=== PATIENT | female | born 2000 | race Caucasian/White ===

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

== ENCOUNTER 2020-02-04 11:39 | Outpatient (CLI) | payer MEDICAID ==
[~2020-02-04] VITALS: Ht 162.6 cm; Wt 83.6 kg
[~2020-02-04 11:39] MED LIST changes: +FLAGYL500 MG PO; +ZITHROMAX 250M250 MG PO
--- NOTE | 2020-02-04 11:45 | NUR ---
1145-G3L1 29.[address] Diaz' to LR 5 with complaint of vaginal bleeding this am at 0900. Describes bleeding as a dime size bright red amount on toilet paper with voiding. It was followed by brown discharge similar in size and then again more bright red small amount of bleeding an hour or so later with voiding. Reports good movement. Denies contractions but does state "I have had more and more constant tightening over the last week." Patient was on pelvic rest from complete previa noted at 28weeks. Denies any VSS see flow record. 1209-Dr. Hurst updated, see physician notification 1220-Difficulty tracing FHR due to audbile movement. EFM adjusted. 1240-Paitent off EFM. Upon removal of EFM patient voiced concern with vaginal itching and pain she is having on exernal labia. No redness noted on labia. Updated MD. Orders obtained to dishcarge home and instruct to brain picker monistat for use on area and follow up with Dr. Diaz Thursday if not improving.
[2020-02-04 11:54] VITALS: BP 112/57; PULSE 117; TEMP 98.8
[2020-02-04] MEDS ORDERED: PRENATAL (12:02)
[2020-02-04 12:15] VITALS: BP 112/57; PULSE 117; TEMP 98.8
--- NOTE | 2020-02-04 13:03 | NUR ---
1303-ambulatory off unit
== END 2020-02-04 13:03 | disposition home or self-care (01) ==
LOC: LDRO 11:39
DX: O46.8X3 Other antepartum hemorrhage, third trimester (principal); Z3A.29 29 weeks gestation of pregnancy

== ENCOUNTER 2020-02-27 15:20 | Outpatient (CLI) | payer MEDICAID ==
[~2020-02-27] VITALS: Ht 162.6 cm; Wt 75.0 kg
[~2020-02-27 15:20] MED LIST changes: +PRENATAL
[2020-02-27 15:23] VITALS: PULSE 76; TEMP 98.1
[2020-02-27 15:37] VITALS: BP 98/65; PULSE 99
--- NOTE | 2020-02-27 15:42 | NUR ---
1440 PATIENT HERE FOR COMPLAINTS OF CRAMPS AT HOME. EFM ON FHT 125 BABY VERY ACTIVE. NO CONTRACTIONS ON MONITOR AT THIS TIME. NO SVE DUE TO COMPLETE PREVIA. DR GODDARD UPDATED AND STRIP REVIEWED AT THIS TIME. ASSESSMENT COMPLETED VS WNL,
== END 2020-02-27 15:44 | disposition home or self-care (01) ==
LOC: LDRO 15:20 → LDR 15:29 → LDRO 15:44
DX: O62.9 Abnormality of forces of labor, unspecified (principal); Z3A.32 32 weeks gestation of pregnancy
CPT/HCPCS: OP

== ENCOUNTER → 2020-03-27 | Outpatient (CLI) | payer MEDICAID ==
[~2020-03-27] MED LIST changes: +PERCOCET 325 MG1 TA2 PO
== END ==
LOC: COL.LAB
DX: Z20.828 Contact with and (suspected) exposure to other viral communicable diseases (principal)

== ENCOUNTER 2020-03-29 05:23 | Inpatient (IN) | payer MEDICAID ==
[2020-03-29] VITALS (21 sets, daily range): BP systolic 90–127; BP diastolic 58–86; PULSE 70–94; TEMP 98–98.8
[~2020-03-29] VITALS: Ht 162.6 cm; Wt 90.5 kg
[~2020-03-29 05:23] MED LIST changes: -PERCOCET 325 MG1 TA2 PO
--- NOTE | 2020-03-29 05:25 | NUR ---
Pt ambulatory to 209 for scheduled with significant other. Clean gown on. EFM and TOCO explained and applied. Pt states she has irregular contractions. Denies leaking of fluids or vaginal bleeding. Reports good movement. Plan of care and consents completed. 0540: IV started and labs obtained vis IV site. LR bolus infusing without difficulties.
[2020-03-29 06:14] LABS: BASO % 0.2 % (0.0-2.0); EOS % 0.5 % (0-4.0); GRAN # 5.5 (1.4-6.5); GRAN % 62.3 % (42.2-75.2); LYMPH # 2.6 (1.2-3.4); LYMPH % 29.7 % (20.0-51.0); MEAN CELL VOLUME 70 fl (80.0-95.0); MEAN CORPUSCULAR HGB CONC 29 g/dl (33.0-37.0); MEAN PLATELET VOLUME 11.2 fl (7.4-10.4); MONO # 0.6 (0.1-0.6); MONO % 6.2 % (1.7-9.3); PLATELET COUNT 187 K/mm3 (130-400); RED BLOOD COUNT 3.41 M/mm3 (4.10-5.30); REDCELL DISTRIBUTION WIDTH-CV 19.9 % (11.5-14.5)
[2020-03-29 06:18] LABS: HEMATOCRIT 23.9 % (35.0-45.0); MEAN CORPUSCULAR HEMOGLOBIN 21 pg (26.0-32.0)
--- NOTE | 2020-03-29 08:35 | NUR ---
LARGE CLOT EXPRESSED IN OR. DR GODDARD NOTIFIED AND CAME INTO OR. METHERGINE IM ORDERED AND GIVEN. AT 0840- LARGE CLOT EXPRESSED. DR GODDARD NOTIFIED AND CAME IN TO REEVALUATE. DR GODDARD MASSAGED FUNDUS FOR 5 MINUTES- TIMED ON THE CLOCK
--- NOTE | 2020-03-29 08:40 | NUR ---
WEIGHED PADS FOR PATIENTS CLOT- [id number] BLEEDING.
--- NOTE | 2020-03-29 12:45 | NUR ---
PATIENT PUMPED 10 MLS MILK. MILK SENT WITH . [facility]ED TO [facility] TO BE WITH THE BABY
--- NOTE | 2020-03-29 17:29 | NUR ---
PATIENT PUMPED 10 MLS BREAST MILK. PLACED IN REFRIGERATOR
--- NOTE | 2020-03-29 23:34 | NUR ---
Assumed care at this time.
[2020-03-30 00:30] VITALS: BP 103/65; PULSE 88; TEMP 98.7
[2020-03-30 03:00] VITALS: BP 101/56; PULSE 83; TEMP 97.9
[2020-03-30 07:00] VITALS: BP 102/56; PULSE 84; TEMP 98.8
[2020-03-30 07:00] LABS: BASO % 0.2 % (0.0-2.0); EOS % 0.1 % (0-4.0); GRAN # 8.7 (1.4-6.5); GRAN % 70.2 % (42.2-75.2); LYMPH # 2.7 (1.2-3.4); LYMPH % 21.7 % (20.0-51.0); MEAN CELL VOLUME 71 fl (80.0-95.0); MEAN CORPUSCULAR HGB CONC 29 g/dl (33.0-37.0); MEAN PLATELET VOLUME 11.2 fl (7.4-10.4); MONO # 0.8 (0.1-0.6); MONO % 6.7 % (1.7-9.3); PLATELET COUNT 156 K/mm3 (130-400); RED BLOOD COUNT 2.99 M/mm3 (4.10-5.30); REDCELL DISTRIBUTION WIDTH-CV 19.9 % (11.5-14.5)
[2020-03-30 07:08] LABS: HEMATOCRIT 21.3 % (35.0-45.0); HEMOGLOBIN 6.2 g/dl (12.0-15.0); MEAN CORPUSCULAR HEMOGLOBIN 21 pg (26.0-32.0)
[2020-03-30] MEDS ORDERED: IBU600 MG PO (08:36)
[2020-03-30] MEDS ORDERED: PERCOCET 325 MG1 TA2 PO (08:36)
[2020-03-30 11:00] VITALS: BP 104/62; PULSE 97; TEMP 97.8
--- NOTE | 2020-03-30 11:00 | NUR ---
1100-Reviewed discharge instructions with patient. Reviewed 2 and 6 week scheduled visits. Provided newly prescribed rx. Denies questions. verbalizes understanding. 1255-Ambulatory off unit with spouse.
== END 2020-03-30 12:55 | disposition home or self-care (01) | DRG 788 ==
LOC: COL.LAB → OB 05:23 → EDSTATUS 10:47 → LDR 10:48 → COL.LAB 11:12 → OB 03-30 12:55
PROVIDERS: ADMIT Obstetrics & Gynecology
PROC: 10D00Z1 Extraction of Products of Conception, Low, Open Approach (ICD-10-PCS; principal; 2020-03-29)
DX: O44.13 Complete placenta previa with hemorrhage, third trimester (principal); O99.02 Anemia complicating childbirth; D64.9 Anemia, unspecified; Z37.0 Single live birth; Z3A.37 37 weeks gestation of pregnancy
CPT/HCPCS: J0690; J1885; J2210; J2370; J2405; J2590; J7120

== ENCOUNTER 2020-08-24 11:42 | Emergency (ER) | payer MEDICAID ==
[~2020-08-24] VITALS: Ht 165.1 cm; Wt 79.1 kg
[~2020-08-24 11:42] MED LIST changes: +PERCOCET 325 MG1 TA2 PO
[2020-08-24 11:57] VITALS: BP 116/76; TEMP 98.2
[2020-08-24 12:51] VITALS: PULSE 85
== END 2020-08-24 12:51 | disposition home or self-care (01) ==
LOC: COL.ER 11:42
DX: Z20.828 Contact with and (suspected) exposure to other viral communicable diseases (principal); Z79.1 Long term (current) use of non-steroidal anti-inflammatories (NSAID); Z79.891 Long term (current) use of opiate analgesic

== ENCOUNTER 2020-10-22 15:15 | Emergency (ER) | payer MEDICAID ==
[~2020-10-22] VITALS: Ht 165.1 cm; Wt 72.7 kg
[2020-10-22 15:30] VITALS: BP 114/73; TEMP 98.7
[2020-10-22 17:30] VITALS: PULSE 88
== END 2020-10-22 17:30 | disposition home or self-care (01) ==
LOC: COL.ER 15:15
DX: J06.9 Acute upper respiratory infection, unspecified (principal); Z20.822 Contact with and (suspected) exposure to COVID-19

== ENCOUNTER 2021-10-10 00:38 | Emergency (ER) | payer MEDICAID ==
[~2021-10-10] VITALS: Ht 165.1 cm; Wt 72.7 kg
[2021-10-10 00:43] VITALS: TEMP 98
[2021-10-10 01:19] LABS: BASO % 0.4 % (0.0-2.0); EOS # 0.1 K/mm3 (0.0-0.7); EOS % 1.3 % (0.0-4.0); GRAN # 4.1 K/mm3 (1.4-6.5); GRAN % 48.5 % (42.2-75.2); HEMATOCRIT 37.2 % (37.0-47.0); LYMPH # 3.8 K/mm3 (1.2-3.4); LYMPH % 44.2 % (20.0-51.0); MEAN CELL VOLUME 81 fl (80.0-100.0); MEAN CORPUSCULAR HEMOGLOBIN 26 pg (27-31); MEAN CORPUSCULAR HGB CONC 32 g/dl (33.0-37.0); MEAN PLATELET VOLUME 10.2 fl (7.4-10.4); MONO # 0.4 K/mm3 (0.1-0.6); MONO % 5.2 % (1.7-9.3); PLATELET COUNT 291 K/mm3 (130-400); RED BLOOD COUNT 4.61 M/mm3 (4.10-5.30); REDCELL DISTRIBUTION WIDTH-CV 14.6 % (11.5-14.5)
[2021-10-10 01:23] LABS: COLLECTION METHOD CLEAN CATCH
[2021-10-10 01:31] LABS: MUCOUS Present (NOT PRESENT); PH 5 (5-8); SQUAMOUS EPITHELIAL 0-2 /hpf (0-10); URINE APPEARANCE Clear (CLEAR/HAZY); URINE BACTERIA None Seen /hpf (NONE SEEN); URINE BILIRUBIN Negative (NEGATIVE); URINE BLOOD 1+ (NEGATIVE); URINE COLOR Yellow (YELLOW); URINE GLUCOSE Negative (NEGATIVE); URINE KETONE Negative (NEGATIVE); URINE LEUKOCYTE ESTERASE Trace (NEGATIVE); URINE NITRATE Negative (NEGATIVE); URINE PROTEIN(semi-quant) Negative (NEGATIVE); URINE RBC 0-2 /hpf (0-2)
[2021-10-10 01:36] LABS: ALBUMIN 3.7 gm/dL (3.5-5.0); BILIRUBIN,TOTAL 0.3 mg/dL (0.2-1.2); C-REACTIVE PROTEIN 0.28 mg/dL (0.00-0.50); CREATININE, serum 0.6 mg/dL (0.57-1.11); POTASSIUM 3.7 mmol/L (3.5-4.5); TOTAL PROTEIN 7.2 gm/dL (6.2-8.1)
[2021-10-10 02:59] VITALS: BP 133/89; PULSE 70
== END 2021-10-10 02:10 | disposition home or self-care (01) ==
LOC: COL.ER 00:38
PROVIDERS: Nurse Practitioner
DX: R10.31 Right lower quadrant pain (principal); R10.32 Left lower quadrant pain; R11.10 Vomiting, unspecified; Z32.02 Encounter for pregnancy test, result negative

== ENCOUNTER 2021-11-24 18:56 | Emergency (ER) | payer SELFPAY ==
[~2021-11-24] VITALS: Ht 165.1 cm; Wt 75.0 kg
[2021-11-24 19:01] VITALS: TEMP 98.1
[2021-11-24 20:40] VITALS: BP 144/78; PULSE 76
== END 2021-11-24 20:40 | disposition home or self-care (01) ==
LOC: COL.ER 18:56
DX: S06.9X9A Unspecified intracranial injury with loss of consciousness of unspecified duration, initial encounter (principal); V48.5XXA Car driver injured in noncollision transport accident in traffic accident, initial encounter